=== PATIENT | female | born 1980 | race Caucasian/White ===

== ENCOUNTER 2021-04-11 10:58 | Emergency (ER) | payer BC, OTHER ==
[~2021-04-11] VITALS: Ht 170.2 cm; Wt 91.7 kg
[2021-04-11] MEDS ORDERED: KETOROLAC 60 MG/2 ML IM ONE (12:00)
[2021-04-11] MEDS ORDERED: KETOROLAC 60 MG/2 ML ONE (12:21)
[2021-04-11 12:35] VITALS: BP 112/66
--- NOTE | 2021-04-11 12:49 | NUR ---
D/C INSTRUCTIONS, MEDS & F/U APPT RV'WD WITH PT, SHE VERBALIZES UNDERSTANDING. RX GIVEN X1. AMBULATED OUT OF ED WITHOUT DIFFICULTY.
== END 2021-04-11 12:49 | disposition home or self-care (01) ==
LOC: ED 11:28
DX: S29.011A Strain of muscle and tendon of front wall of thorax, initial encounter (principal); R06.02 Shortness of breath; F17.210 Nicotine dependence, cigarettes, uncomplicated; W22.8XXA Striking against or struck by other objects, initial encounter; Y93.89 Activity, other specified; Y92.89 Other specified places as the place of occurrence of the external cause; Y99.8 Other external cause status
CPT/HCPCS: 71046; 93005; 96372; 99283; J1885